=== PATIENT | female | born 1990 | race Caucasian/White ===

== ENCOUNTER → 2016-11-26 | Outpatient (CLI) | payer OTHER ==
[2016-11-26 12:51] LABS: BILIRUBIN,TOTAL 0.6 mg/dL (0.3-1.2); BLOOD UREA NITROGEN 10 mg/dL (7-22); BUN/CREATININE RATIO 14.28 (6-20); CALCIUM 9.3 mg/dL (8.7-10.7); CHLORIDE 101 meq/L (98-112); CREATININE 0.7 mg/dL (0.50-1.20); EST GLOMERULAR FILTRATION > 60 (>60 ml/min/1.73m(2)); GLUCOSE 92 mg/dL (78-110); POTASSIUM 4.2 meq/L (3.8-5.2); SODIUM 138 meq/L (135-145)
[2016-11-26 12:53] LABS: ASPARTATE AMINO TRANSFERASE 30 IU/L (8-39); TOTAL PROTEIN 7.2 g/dL (6.1-8.0); TRIGLYCERIDES 199 mg/dL (44-200)
[2016-11-26 12:54] LABS: HDL CHOLESTEROL 46 mg/dL (40-150)
== END ==
LOC: MOB LAB 10:31
PROVIDERS: ATTEND Nurse Practitioner Family
DX: I10 Essential (primary) hypertension (principal); E28.2 Polycystic ovarian syndrome; Z83.3 Family history of diabetes mellitus
CPT/HCPCS: 36415; 80053; 80061; 83525

== ENCOUNTER 2017-01-19 00:28 | Emergency (ER) | payer OTHER ==
[2017-01-19] MEDS ORDERED: Sodium Chloride 0.9% 1,000 ML PRIMARY IV ONE (00:54)
[2017-01-19] MEDS ORDERED: NORMAL SALINE 10 ML SYRINGE FLUSH IVP PRN (00:54)
[2017-01-19 01:17] LABS: BASOPHILS # (AUTO) 0.05 10*3/UL; BASOPHILS % (AUTO) 0.4 % (0-1); EOSINOPHILS % (AUTO) 1.5 % (0-8); HEMATOCRIT 40.6 % (37.0-47.0); HEMOGLOBIN 13.5 g/dL (12.0-16.0); IMM GRAN % (AUTO) 0.3 % (0-5); IMM GRAN# (AUTO) 0.03 10*3/UL; LYMPHOCYTES # (AUTO) 2.62 10*3/uL; LYMPHOCYTES % (AUTO) 21.8 % (10-50); MEAN CORPUSCULAR HEMOGLOBIN 27.3 PG (27-31); MEAN CORPUSCULAR HGB CONC 33.3 g/dL (33-37); MONOCYTES # (AUTO) 0.78 10*3/UL (0.3-0.8); MONOCYTES % (AUTO) 6.5 % (5-15); NEUTROPHILS # (AUTO) 8.34 10*3/UL; NEUTROPHILS % (AUTO) 69.5 % (50-80); RDW COEFFICIENT OF VARIATION 14.1 % (11.5-14.5); RED BLOOD COUNT 4.95 10^6/uL (4.20-5.40)
[2017-01-19 01:19] LABS: BILIRUBIN,URINE SMALL (NEG); CLARITY,URINE CLEAR (CLEAR); GLUCOSE, URINE (UA) NEGATIVE (NEG); LEUKOCYTE ESTERASE ,URINE NEGATIVE (NEG); NITRATE,URINE NEGATIVE (NEG); OCCULT BLOOD,URINE NEGATIVE (NEG); PH,URINE 5.5 (5.0-8.5); PROTEIN,URINE NEGATIVE (NEG); UROBILINOGEN,URINE 0.2 EU/dL (0.2)
[2017-01-19 01:26] LABS: AMYLASE 47 U/L (30-110); ASPARTATE AMINO TRANSFERASE 26 IU/L (8-39); BILIRUBIN,TOTAL 0.3 mg/dL (0.3-1.2); BLOOD UREA NITROGEN 11 mg/dL (7-22); BUN/CREATININE RATIO 12.22 (6-20); CALCIUM 9.7 mg/dL (8.7-10.7); CHLORIDE 101 meq/L (98-112); CREATININE 0.9 mg/dL (0.50-1.20); EST GLOMERULAR FILTRATION > 60 (>60 ml/min/1.73m(2)); GLUCOSE 99 mg/dL (78-110); POTASSIUM 4.2 meq/L (3.8-5.2); SODIUM 140 meq/L (135-145); TOTAL PROTEIN 8.1 g/dL (6.1-8.0)
[2017-01-19 01:29] LABS: PLATELET MORPHOLOGY COMMENT NORMAL MORPHOLOGY (NORM)
[2017-01-19 01:30] LABS: URINE SAMPLE TYPE CATH SPECIMEN
[2017-01-19 01:34] VITALS: RESP 16; TEMP 96.9
--- NOTE | 2017-01-19 02:36 | DI ---
HISTORY: Abdominal pain. TECHNIQUE: Contiguous axial images of the abdomen and pelvis were obtained and submitted for interpr etation. FINDINGS: Patient body habitus creates artifact that limits evaluation of fine anatomic detail. Normal CT appearance of the gallbladder, pancreas, spleen, kidneys, and adrenal glands. Diffuse hypo enhancement of the liver relative to the spleen is noted, most commonly associated with hepatic steat osis. No focal lesion is present. Ureters and bladder are unremarkable. No radiopaque renal or colle cting system calculi. No evidence of obstructive uropathy. Hollow viscus organs demonstrate normal course and caliber. The appendix is within normal limits. Th ere is no intraperitoneal free air or fluid. Vascular structures are intact. There are multiple anirudh tty is enteric lymph nodes, not pathologically enlarged by CT size criteria. The uterus and adnexa a re unremarkable, though better evaluated with pelvic ultrasound. There is no inguinal or umbilical h ernia. A calcified granuloma is noted in the right middle lobe. The lung bases are otherwise clear. There is age indeterminate anterior compression deformity of T11 and T12 with multilevel degenerative disc disease. Posterior disc osteophyte formation at the T11/12 and T12/L1 levels result in osseous central canal narrowing. IMPRESSION: 1. Probable diffuse hepatic steatosis. 2. Age indeterminate T11 and T12 anterior compression deformity with multilevel degenerative disc dis ease. NOTIFICATION: The above findings were phoned to Ayan Watson in the ER Department on 01/19/2017 at 4:4 4am EST.
--- NOTE | 2017-01-19 03:25 | PDOC ---
General Adult HPI - General Chief Complaint: General Medical Stated Complaint: BLEEDING AFTER GOING TO THE BATHROOM & STOMACH FEI Date Seen by Provider: 01/19/17 Time Seen by Provider: 00:40 Source: POSITIVE: Patient, Other (Mother) Exam Limitations: POSITIVE: No limitations Nurse's Notes Reviewed & Considered: Yes - History of Present Illness Initial Comment: The patient is a 26-year-old female. She states that for the past 2 days she has had some upper abdominal discomfort, mainly left upper abdomen. She also states that she has noted some bright red blood in her underwear after going to the bathroom. She's had no history of surgery. History of PCOS. No diarrhea or melena. No dysuria or hematuria. No fevers or chills. Have you received a tetanus shot in the past 10 years?: Unknown Body Location Affected: REPORTS: Abdomen (As above) Timing: REPORTS: Abrupt Duration: >24 hours (2 days) Severity: Moderate Quality: REPORTS: Cramping Context: REPORTS: None Modifying Factors: improves with: Nothing Similar Symptoms Previously: No Recent Care Received: REPORTS: Denies Any Prior Injuries Related to Current Complaint?: No - Patient Home Medications Home Medications: Home Medications Duloxetine HCl [Cymbalta] 2 cap PO DAILY cap 09/18/15 Trazodone HCl 1 tab PO QHS tab 09/18/15 Clonazepam 0.5 mg ORAL QID #0 tab 05/30/16 Metformin HCl [Metformin Hcl Er] 4 tab PO DAILY #480 tab 11/26/16 Metoprolol Succinate 1 tab PO DAILY #90 tab 11/26/16 Ibuprofen 1 tab PO TID PRN #180 tab 12/11/16 Hydrocortisone Acetate [Anusol-Hc] 25 mg RC Q12H #20 supp.rect 01/19/17 Hydroxyzine Pamoate [Vistaril] 50 mg PO DAILY 01/19/17 - Patient Allergies Allergies/Adverse Reactions: Allergies Allergy/AdvReac Type Severity Reaction Status Date / Time metronidazole Allergy Severe DIFFICULTY Verified 01/19/17 01:13 SWALLOWING, SWELLING FEELING OF THROAT aloe Allergy itching Verified 01/19/17 01:13 cephalexin monohydrate Allergy ITCHING Unverified 01/19/17 00:31 [From Keflex] Past Medical History - heen HEENT History: Denies History Cardiovascular History: Hypertension Respiratory History: Shortness of Breath Genitourinary History: Denies History Endocrine History: Type 2 Diabetes (diet) Musculoskeletal History: Back Pain, Back Injury Prosthesis or Implant: No Neurological History: Denies History Blood Disorders: Denies History Psychiatric History: Depression, Anxiety Disorders, Eating Disorders, Self-Harm Disorders Female Reproductive History: Other (please comment) Additional Female Reproductive History: Hx of polycystic ovarian syndrome. Obstetrical History: Denies History Cancer History: Denies History In Past Year Been Physically Harmed or Verbally Threatened: No History of MDRO: No Tobacco Use: Never Smoker Alcohol Use: Rarely Substance Use Type: None Previous Surgical History: No Significant Family History: Asthma, Cancer, Diabetes, Renal disease, Vascular disease Past Medical History Reviewed: Reviewed - No Changes ROS - Limitations ROS Limitations: No Limitations Constitution: REPORTS: Denies Symptoms Cardiovascular: REPORTS: Denies Cardiac Symptoms Respiratory: REPORTS: Denies Resp Symptoms Neurological: REPORTS: Denies Neuro Symptoms Gastrointestinal: REPORTS: Abdominal Pain, Bloody Stools Endocrine: REPORTS: Denies Symptoms Musculoskeletal: REPORTS: Denies MS Symptoms Genitourinary: REPORTS: Denies Symptoms Eyes: REPORTS: Denies Symptoms ENT: REPORTS: Denies Symptoms Skin: REPORTS: Denies Skin Symptoms Lympathic: REPORTS: Denies Lympathic Symptoms Immunologic: POSITIVE: Denies Symptoms Psychiatric: POSITIVE: Denies Psych Symptoms General Adult Exam - General Appearance General Appearance: POSITIVE: Alert, Cooperative, No Acute Distress, No Evidence of Trauma - HEENT HEENT: POSITIVE: Head Inspection Nml, Eyes Inspection Nml, Ears Inspection Nml, Nose Inspection Nml, Oral/Dental Inspect. Nml, Pharynx Inspect. Nml, PERRL, EOMI - Pupils Pupil Size: 3 mm: Bilateral (PERRLA) - Neck Neck: POSITIVE: Normal Inspection, Thyroid Normal - Respiratory Respiratory: POSITIVE: No Respiratory Distress, Breath Sounds Normal, Chest Non- Tender - Cardiovascular Cardiovascular: POSITIVE: Regular Rate & Rhythm, No Murmur, No Gallop, PMI Normal Peripheral Pulses: Radial (R): 2+, Radial (L): 2+ - Abdomen Abdomen: Soft: (All Quadrants), Normal Bowel Sounds: (All Quadrants), Denies Tenderness: (RUQ), (LUQ), (RLQ), No Splenomegaly: (All Quadrants), No Hepatomegaly: (All Quadrants), No Guarding: (All Quadrants), No Rebound: (All Quadrants), No Palpable Pulse: (All Quadrants), No Palpabale Mass: (All Quadrants), No Distention: (All Quadrants), No Rigidity: (All Quadrants), Tenderness Noted: (LLQ) Additional Abdominal Details: Abdominal examination shows bowel sounds to be active. Patient expresses some discomfort on firm palpation left upper abdomen and left paralumbar area. No masses or organomegaly or rebound. - Rectal Rectal: POSITIVE: Non Tender, Normal Rectal Tone, Heme Positive Stool, Other ( Stool vidya colored and mildly loose. Hemoccult positive. No external hemorrhoids appreciated.). 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 As Tested, Motor Normal, Sensation Normal, 5, 6 Images - Complete Complete: 1 - Discomfort on palpation General Adult Progress - Results Reviewed by me Xrays/CTs/US Reviewed by me: Yes Discussed with Radiologist: Yes Radiology Findings: CT scan abdomen and pelvis normal except for some incidentally noted degenerative changes in the spine Lab Results Reviewed: Yes Lab Results:: Laboratory Results 01/19/17 Range/Units 01:13 WBC 12.00 H (4.8-10.8) 10^3/uL RBC 4.95 (4.20-5.40) 10^6/uL Hgb 13.5 (12.0-16.0) g/dL Hct 40.6 (37.0-47.0) % MCV 82.0 (81-99) FL MCH 27.3 (27-31) PG MCHC 33.3 (33-37) g/dL RDW Std Deviation 41.1 (39-50) fL RDW Coeff of Sacha 14.1 (11.5-14.5) % Plt Count 361 H (140-350) 10*3/uL MPV 9.0 (7.4-12.2) FL Immature Gran % (Auto) 0.3 (0-5) % Neut % (Auto) 69.5 (50-80) % Lymph % (Auto) 21.8 (10-50) % Gilliam % (Auto) 6.5 (5-15) % Eos % (Auto) 1.5 (0-8) % Baso % (Auto) 0.4 (0-1) % Immature Gran # (Auto) 0.03 10*3/UL Neut # (Auto) 8.34 10*3/UL Lymph # (Auto) 2.62 10*3/uL Gilliam # (Auto) 0.78 (0.3-0.8) 10*3/UL Eos # (Auto) 0.18 10*3/UL Baso # (Auto) 0.05 10*3/UL WBC Morphology Comment Normal morphology (NORM) Plt Morphology Comment Normal morphology (NORM) RBC Morph Comment Normal morphology (NORM) Sodium 140 (135-145) meq/L Potassium 4.2 (3.8-5.2) meq/L Chloride 101 (98-112) meq/L Carbon Dioxide 26 (23-33) meq/L Anion Gap 13 (5-20) BUN 11 (7-22) mg/dL Creatinine 0.9 (0.50-1.20) mg/dL Estimated GFR > 60 (>60 ml/min/1.73m(2)) BUN/Creatinine Ratio 12.22 (6-20) Glucose 99 (78-110) mg/dL Calculated Osmolality 288.0 (267-292) mOsm/kg Calcium 9.7 (8.7-10.7) mg/dL Total Bilirubin 0.3 (0.3-1.2) mg/dL AST 26 (8-39) IU/L ALT 47 (9-52) IU/L Alkaline Phosphatase 81 (38-126) IU/L Total Protein 8.1 H (6.1-8.0) g/dL Albumin 4.3 (3.5-4.8) g/dL Globulin 3.8 (2.50-4.10) g/dL Albumin/Globulin Ratio 1.10 L (1.3-2.0) mg/g Amylase 47 (30-110) U/L Lipase 80 (23-300) IU/L Serum HCG, Qual Negative Ur Collection Type Cath specimen Urine Color Yellow Urine Clarity Clear (CLEAR) Urine pH 5.5 (5.0-8.5) Ur Specific Brule 1.025 (1.005-1.030) Urine Protein Negative (NEG) mg/dl Urine Glucose (UA) Negative (NEG) mg/dL Urine Ketones 15 (NEG) Urine Occult Blood Negative (NEG) Urine Nitrate Negative (NEG) Urine Bilirubin Small (NEG) Urine Urobilinogen 0.2 (0.2) EU/dL Ur Leukocyte Esterase Negative (NEG) Ur Culture Indicated? Culture not set - Patient's Progress Pain Medication Addressed: POSITIVE: Yes (Recommended Tylenol) School/Work Release Addressed: POSITIVE: Not Applicable Re-Examine Time: 02:55 Re-Examine Comment: Minimal discomfort on discharge Status: POSITIVE: Improved, Re-Examined Antibiotics Given: No - Consult Counseled: POSITIVE: Patient, Family (Mother), RE: Lab Results, RE: Radiology Results, RE: DX, RE: Need for F/U Patient Care Time - Estimated PCT Patient Care Time (In Minutes): 35 Vital Signs - Recent Vital Signs Vital Signs: Vital Signs (Last 8 hours) Temp Pulse Resp BP Pulse Ox 01/19/17 00:28 96.9 F 132 H 16 160/110 99 - VS Reviewed Vital Signs Reviewed: Yes Discharge Clinical Impression: Hematochezia, Abdominal pain Discharge Disposition: Discharged to Home Condition: Good Prescriptions / Orders: Hydrocortisone Acetate [Anusol-Hc] 25 mg RC Q12H #20 supp.rect Patient Instructions Given at Discharge: Rectal Bleeding (ED), Abdominal Pain ( ED) Additional Instructions: Your blood test and your urine tests are normal. CT scan of the abdomen and pelvis shows no abdominal or pelvis pathology. Rectal exam does show that she your stool tests positive for blood chemically, although I could see no bright red blood and your stool was of normal color. I am not sure what the source of your bright red rectal bleeding is, although I suspect you probably have some internal hemorrhoids. Use TUCKS instead of toilet paper to wipe her bottom. Follow-up with your primary care provider or surgeon; you may need a colonoscopy to fully define what is going on. Clear liquid diet for 24 hours. Return here anytime if condition worsens in any way, or as necessary. You might try Anusol HC suppositories twice daily. Follow Up With: LUISANA ANN [Primary Care Provider] - (Instructions as above. Follow-up with your primary care provider. Return here anytime if condition worsens.)
== END 2017-01-19 03:20 | disposition home or self-care (01) ==
LOC: ER 00:28
DX: K92.1 Melena (principal); R10.12 Left upper quadrant pain; R10.11 Right upper quadrant pain
CPT/HCPCS: 74177; 80053; 81003; 82150; 83690; 84703; 85025; 96360; 96361; 99282; 99283; J7030